=== PATIENT | male | born 1970 | race Caucasian/White ===

== ENCOUNTER 2023-04-11 22:24 | Inpatient (IN) | payer OTHER, SELFPAY ==
[2023-04-11 15:25] VITALS: BP 131/91
[2023-04-11 16:26] LABS: % Basophils 0.6 % (0-2); % Immature Granulocytes 1.1 % (0-0.5); % Lymphocytes 26.1 % (20.5-51.1); % Monocytes 7.8 % (1.7-9.3); % Neutrophils 62.4 % (42.2-75.2); Absolute Basophils 0.1 10^3/uL (0-0.2); Absolute Eosinophils 0.2 10^3/uL (0-0.7); Absolute Immature Granulocytes 0.1 10^3/uL (0-0.05); Absolute Lymphocytes 2.2 10^3/uL (1.2-3.4); Absolute Monocytes 0.7 10^3/uL (0.1-0.6); Absolute Neutrophils 5.3 10^3/uL (1.4-6.5); Hematocrit 44.9 % (39.0-52.0); Hemoglobin 15.1 g/dL (13.0-18.0); Mean Corp Hgb Conc. 33.6 g/dL (33.0-37.0); Mean Corpuscular Hgb 27.7 pg (27.0-31.0); Mean Corpuscular Volume 82.4 fL (80.0-94.0); Mean Platelet Volume 9.8 fL (7.4-10.4); Nucleated Red Blood Cells % 0 % (-); Platelet Count 207 10^3/uL (130-400); Red Blood Cell Count 5.45 10^6/uL (4.70-6.10); Red Cell Dist. Width 12.9 % (11.5-14.5); White Blood Cell Count 8.5 10^3/uL (4.8-10.8)
[2023-04-11 16:40] LABS: ALT (SGPT) 23 U/L (0-50); AST (SGOT) 27 U/L (17-59); Albumin 4.3 g/dl (3.5-5.0); Alkaline Phosphatase 74 U/L (38-126); Blood Urea Nitrogen 14 mg/dl (9-20); Calcium 8.8 mg/dl (8.4-10.2); Carbon Dioxide 26 mmol/L (22-30); Chloride 104 mmol/L (98-107); Glucose 171 mg/dl (70-99); Lipase 360 U/L (23-300); Potassium 4.1 mmol/L (3.5-5.1); Sodium 136 mmol/L (135-145); Total Bilirubin 0.7 mg/dl (0.2-1.3); Total Protein 6.9 g/dl (6.3-8.2); eGFR > 60.00
--- NOTE | 2023-04-11 17:04 | ED.GENMED ---
History of Present Illness
<Carlene Oliva, ENGINE ROOM OPERATOR - Last Filed: 04/11/23 22:36>
General
Chief Complaint: Abdominal Pain
Source: patient
Exam Limitations: none
Time Seen by Provider: 04/11/23 17:00
Nursing documentation reviewed up to this point in time: agreed with
Travel History
Have you had any contact with someone who has COVID-19?: No
Do you have any symptoms of coronavirus? Fever > 100 degrees, chills, cough, shortness of breath, sore throat, loss of taste or smell, muscle aches, or headache?: No
History of Present Illness
History of Present Illness:
52-year-old male with history of CAD, COPD, HLD, HTN, IA, bowel obstruction, colostomy (reversed), diverticulitis, alcohol abuse (has been clean 120 days) anxiety depression, substance abuse ( here from [place] in a rehab program), presents stating
'I think my diverticulitis is flaring up.' Left abdominal pain radiates across to right abdomen started yesterday, gradually worsening. Denies fever/chills, does feel nauseous but no vomiting. Normal BM this morning. No UTI symptoms.
Past History
<Carlene Oliva, ENGINE ROOM OPERATOR - Last Filed: 04/11/23 22:36>
Past History
ED Past Medical History: CAD, COPD, HTN, Hypercholesterolemia, Psychiatric and Other (alcohol and drug abuse)
ED Past Surgical History: Bowel resection (with colostomy which has been reversed) and Cardiac
Social History
Tobacco: Smoker
Alcohol: Former
Drug: Narcotics
Personal:
Living: with family (drug treatment program)
Review of Systems
<Carlene Oliva, ENGINE ROOM OPERATOR - Last Filed: 04/11/23 22:36>
Review of Systems
Allergies reviewed?: Yes
All Other Systems: ROS reviewed and negative except as documented in HPI and ROS
Constitutional: Denies fever
Respiratory: Denies trouble breathing
Cardiac: Denies chest pain
ABD/GI: Reports abdominal pain and nausea; Denies vomiting, diarrhea, constipated, bloody stools or black stools
: Denies dysuria or difficulty voiding
Musculoskeletal: Reports no symptoms
Skin: Reports no symptoms
Neurological: Reports no symptoms
Phy Exam
<Carlene Oliva, ENGINE ROOM OPERATOR - Last Filed: 04/11/23 22:36>
Physical Exam
Physical Exam:
GENERAL: No acute distress. A&Ox3.
CONSTITUTIONAL: Afebrile.
EYES: PERRL, conjunctivae normal
ENMT: moist mucus membranes, Pharynx nl
RESPIRATORY: Regular respirations, nonlabored, lungs clear.
CARDIOVASCULAR: Regular rate and rhythm, no murmurs, no rubs.
GI: Soft, protuberant, multiple old scars, generally moderately tender, normal BS
MUSCULOSKELETAL: Moves with ease. Well perfused.
SKIN: Warm, dry, pink
PSYCH: Normal mood and affect. Well kept, interactive and appropriate
NEUROLOGIC: Awake, alert and oriented. No focal neurological deficits
Course
<Carlene Oliva, ENGINE ROOM OPERATOR - Last Filed: 04/11/23 22:36>
Orders/Labs/Results
Orders:
Orders
04/11/23 16:17
CBC/With Diff [Complete Blood Count/With Diff] Urgent
CMP [Comprehensive Metabolic Panel] Urgent
Lipase Urgent
04/11/23 17:08
CT Abd/pelvis W Iv Cont Urgent
Comment:
Reason For Exam: gen abd pain
04/11/23 17:09
0.9% Sodium Chloride 1000 ml [Nss] 1,000 ml IV BOLUS
Ondansetron Injectable [Zofran] 4 mg IV NOW STA
04/11/23 17:10
Ketorolac [Toradol] 15 mg IV NOW STA
04/11/23 21:13
Lactic Acid Urgent
0.9% Sodium Chloride 1000 ml [Nss] 2,000 ml IV BOLUS
Piperacillin/Tazo 4.5 Gram [Zosyn] 4.5 gram in 100 ml IV NOW
04/11/23 21:14
Ondansetron Injectable [Zofran] 4 mg IV NOW STA
04/11/23 21:23
Lactic Acid Q4H
Comment: CANCEL 2nd LACTIC ACID IF 1st LACTIC ACID IS LESS THAN 2
Blood Culture Q30M
CHANEL Source: Blood/Venous
Specimen Description:
Blood Culture Q30M
CHANEL Source: Blood/Venous
Specimen Description:
04/11/23 21:36
HYDROmorphone [Dilaudid] 1 mg IV NOW STA
Ondansetron Injectable [Zofran] 4 mg IV NOW STA
04/11/23 21:43
Consult Surgery [SURGICAL CONSULT] Urgent
Consulting Provider: Oh Driver
Was physician already notified: Yes
Reason for consult: abdominal pain
04/11/23 22:04
Admit/Transfer Patient As Directed
Co-Sign Provider:
Level of Care: Inpatient admission
Assign to:: Medical/Surgical
Physician / Group: [email or web address]
Diagnosis: evalaution for acute BW perforation vs partail SBO
Reason for Hospitalization: acute BW perforation vs partail SBO
Expected length of stay greater than two midnights?: Yes
ELOS- Estimated Length of Stay in days: 3
I certify the patient meets the requirements for IP care: Yes
04/11/23 22:07
Code Status As Directed
Resuscitation Status: Full Code
04/12/23 01:15
Lactic Acid Q4H
Comment: CANCEL 2nd LACTIC ACID IF 1st LACTIC ACID IS LESS THAN 2
Abnormal Lab Results
04/11/23
16:17
Abs Immat Gran (auto) 0.1 H 10^3/uL
(0-0.05)
Absolute Monos (auto) 0.7 H 10^3/uL
(0.1-0.6)
Immature Gran % 1.1 H %
(0-0.5)
Glucose 171 H mg/dl
(70-99)
Lipase 360 H U/L
(23-300)
04/11/23 16:17
04/11/23 16:17
Vital Signs
Initial and Last Documented VS:
Initial Vital Signs
Temp Pulse Resp BP Pulse Ox
97.9 F 85 20 131/91 100
04/11/23 15:25 04/11/23 15:25 04/11/23 15:25 04/11/23 15:25 04/11/23 15:25
Last Documented Vital Signs
Temp Pulse Resp BP Pulse Ox
97.9 F 67 20 118/78 95
04/11/23 15:25 04/11/23 17:18 04/11/23 15:25 04/11/23 22:00 04/11/23 22:15
Metal Reed Tuner consulted with Physician
Metal Reed Tuner consulted with physician?: Yes
Name of Physician Consulted: Dr. Faye
<Tim Faye, DO - Last Filed: 04/11/23 21:21>
Orders/Labs/Results
Orders:
Orders
04/11/23 16:17
CBC/With Diff [Complete Blood Count/With Diff] Urgent
CMP [Comprehensive Metabolic Panel] Urgent
Lipase Urgent
04/11/23 17:08
CT Abd/pelvis W Iv Cont Urgent
Comment:
Reason For Exam: gen abd pain
04/11/23 17:09
0.9% Sodium Chloride 1000 ml [Nss] 1,000 ml IV BOLUS
Ondansetron Injectable [Zofran] 4 mg IV NOW STA
04/11/23 17:10
Ketorolac [Toradol] 15 mg IV NOW STA
04/11/23 21:13
Lactic Acid Urgent
0.9% Sodium Chloride 1000 ml [Nss] 2,000 ml IV BOLUS
Piperacillin/Tazo 4.5 Gram [Zosyn] 4.5 gram in 100 ml IV NOW
04/11/23 21:14
Ondansetron Injectable [Zofran] 4 mg IV NOW STA
04/11/23 21:23
Lactic Acid Q4H
Comment: CANCEL 2nd LACTIC ACID IF 1st LACTIC ACID IS LESS THAN 2
Blood Culture Q30M
CHANEL Source: Blood/Venous
Specimen Description:
Blood Culture Q30M
CHANEL Source: Blood/Venous
Specimen Description:
04/11/23 21:36
HYDROmorphone [Dilaudid] 1 mg IV NOW STA
Ondansetron Injectable [Zofran] 4 mg IV NOW STA
04/11/23 21:43
Consult Surgery [SURGICAL CONSULT] Urgent
Consulting Provider: Oh Driver
Was physician already notified: Yes
Reason for consult: abdominal pain
04/11/23 22:04
Admit/Transfer Patient As Directed
Co-Sign Provider:
Level of Care: Inpatient admission
Assign to:: Medical/Surgical
Physician / Group: arlene
Diagnosis: evalaution for acute BW perforation vs partail SBO
Reason for Hospitalization: acute BW perforation vs partail SBO
Expected length of stay greater than two midnights?: Yes
ELOS- Estimated Length of Stay in days: 3
I certify the patient meets the requirements for IP care: Yes
04/11/23 22:07
Code Status As Directed
Resuscitation Status: Full Code
04/12/23 01:15
Lactic Acid Q4H
Comment: CANCEL 2nd LACTIC ACID IF 1st LACTIC ACID IS LESS THAN 2
Abnormal Lab Results
04/11/23
16:17
Abs Immat Gran (auto) 0.1 H 10^3/uL
(0-0.05)
Absolute Monos (auto) 0.7 H 10^3/uL
(0.1-0.6)
Immature Gran % 1.1 H %
(0-0.5)
Glucose 171 H mg/dl
(70-99)
Lipase 360 H U/L
(23-300)
04/11/23 16:17
04/11/23 16:17
Vital Signs
Initial and Last Documented VS:
Initial Vital Signs
Temp Pulse Resp BP Pulse Ox
97.9 F 85 20 131/91 100
04/11/23 15:25 04/11/23 15:25 04/11/23 15:25 04/11/23 15:25 04/11/23 15:25
Last Documented Vital Signs
Temp Pulse Resp BP Pulse Ox
97.9 F 67 20 118/78 95
04/11/23 15:25 04/11/23 17:18 04/11/23 15:25 04/11/23 22:00 04/11/23 22:15
<Carlene Oliva, ENGINE ROOM OPERATOR - Last Filed: 04/11/23 22:36>
MDM/Problems Addressed
Differential Diagnosis Includes:
diverticulitis, bowel obstruction
MDM/Problems Addressed:
52-year-old male with history of CAD, COPD, HLD, HTN, IA, bowel obstruction, colostomy (reversed), diverticulitis, alcohol abuse (has been clean 120 days) anxiety depression, substance abuse ( here from [place] in a rehab program), presents stating
'I think my diverticulitis is flaring up.' Left abdominal pain radiates across to right abdomen started yesterday, gradually worsening. Denies fever/chills, does feel nauseous but no vomiting. Normal BM this morning. No UTI symptoms.
04/11/2023 2110 PM
CBC normal
CMP with no clinically significant abnormality
Lipase minimally elevated at 360 CT abdomen pelvis
with IV only contrast radiology report read: IMPRESSION: Evidence of previous bowel surgeries.
There is a focal area of dilated small bowel loops in the anterior midline lower abdomen and upper pelvis, in the region of previous anastomosis. There are small foci of extraluminal air along the anterior and inferior margin of this dilated loop of
small bowel, also extending right laterally adjacent to a separate loop of nondilated small bowel. These small extraluminal air-filled cysts are new since previous examination of February 20, 2023. Findings would suggest pneumatosis of this loop of
small bowel. See above discussion.
No evidence for free intraperitoneal air.
Findings of previous granulomatous disease within the visualized lower chest.
Bony degenerative changes as described.
Case discussed with Dr. Faye who evaluated patient
Consulted general surgeon Dr. Driver as he has seen patient in the past
Chronic conditions affecting care: DM, HTN, CAD, COPD, Previous abdomnial surgery and Psychiatric illness (alcohol/drugabuse currently in recovery program)
<Tim Faye DO - Last Filed: 04/11/23 21:21>
*Pulse Oximetry
Patient hypoxic: no
*Program Scheduler Interpretation
Rate: normal
Interpretation: normal
Heart Rate: 78
Rhythm: sinus
*Critical Care Note
Total Time (30-74mins, 75-104mins- exclusive of procedures): 32
Data Reviewed
Review of Other/Old Records Reveals: Labs, Radiology Studies and Progress Notes
Source: patient and records
ED Attending Note
<Carlene Oliva ENGINE ROOM OPERATOR - Last Filed: 04/11/23 22:36>
-
Portions of this chart may have been created with voice recognition software.� Occasional wrong word or��sound alike� substitutions may have occurred due to the inherent limitations of voice recognition software.
<Tim Faye DO - Last Filed: 04/11/23 21:21>
ED Attending Note
Patient seen and examined by attending physician: Yes
I performed the substantive portion of visit, reviewed & personally made and approve the management plan that is documented in note by myself or TAMIKO.: Yes
ED Attending Note:
Seen with ENGINE ROOM OPERATOR examined independently recurrent lower abdominal pain living locally drug and alcohol rehab 15prior abdominal surgeries colostomy small bowel obstructions, mesh, admitted if earlier this year with abdominal complaints treated
nonsurgically--diffusely tender right greater than left white count noted,
Will start antibiotics, will require admission surgical consultation
Discharge Plan
Departure
Patient Disposition: Admit
Date of Disposition: 04/11/23
Time of Disposition: 21:32
Presentation/result/management discussed w/ accepting MD/DO: Hospitalist
Condition: Serious
Discharge Problem:
Abdominal pain, acute
Interventions
Interventions:
*Risk Screen - Suicide Last Done: 04/11/23 15:25
*General Assessment Last Done: 04/11/23 15:25
*Neglect/Abuse Screening Last Done: 04/11/23 15:25
*ED COVID-19 Vaccine History Last Done: 04/11/23 15:25
[id number] Assessment Last Done: 04/11/23 16:19
[2023-04-11] MEDS: NSS 1000 IV ×2 (17:14→23:48)
[2023-04-11] MEDS: TORADOL 15 MG IV (17:14)
[2023-04-11] MEDS: ZOFRAN 4 MG IV ×2 (17:14→21:31)
[2023-04-11 17:18] VITALS: BP 128/89
[2023-04-11] MEDS: ZOSYN 100 IV (21:31)
[2023-04-11] MEDS: NSS 2000 IV (21:31)
[2023-04-11] MEDS: DILAUDID 1 MG IV ×2 (21:53→23:47)
[2023-04-11 21:55] VITALS: BP 127/83
--- NOTE | 2023-04-11 21:56 | HPS.HSE ---
Family Physician
-
Family Physician: JAZZ Alvarez
Chief Complaint
-
abdominal pain
History of Present Illness
52M from [facility] re[facility] HX multiple multiple abdominal surgeries and SBOs , reversed colostomy pw acute and gradually worsening abdominal pain especially Lt lower abdomen, radiates across to Rt side
POS Nausea. Denied emesis.
POS normal BM this morning
Denies fever/chill
Medical History
Past Medical History
Past Medical History: Reports CAD, COPD, HTN, Hypercholesterolemia, Psychiatric (anxiety HX opiate/alcohol abuse in active rehab since 12/31/22) and Other (BPH , )
Past Surgical History: Reports Bowel Resection
Social History
Tobacco: Smoker
Alcohol: Former
Drug: Narcotics
Family History
Family History: Not pertinent
Allergies / Home Medications
Allergies reflects when Allergies were last updated in [email or web address].
Home Medications with original date entered in [email or web address]
Allergy/Medication List:
Allergies
Allergy/AdvReac Type Severity Reaction Status Date / Time
sulfamethoxazole Allergy Hives Verified 04/11/23 15:29
[From Bactrim]
trimethoprim [From Bactrim] Allergy Hives Verified 04/11/23 15:29
Home Medications
albuterol sulfate 90 mcg/actuation aerosol inhaler (ProAir HFA) 2 puff inhalation R Q4HPRN PRN sob 02/20/23
aspirin 81 mg tablet,delayed release 81 mg PO DAILY Blood Clot Prevention/Tx 02/20/23
atorvastatin 40 mg tablet (Lipitor) 40 mg PO HS High Cholesterol 02/20/23
budesonide-formoterol HFA 80 mcg-4.5 mcg/actuation aerosol inhaler (Symbicort) 1 inh inhalation R BID Lung/Breathing Issues 02/20/23
clonidine HCl 0.1 mg tablet 0.1 mg PO BIDPRN PRN ANIXETY 02/20/23
hydroxyzine HCl 50 mg tablet 50 mg PO DAILY 02/20/23
lisinopril 10 mg tablet 10 mg PO DAILY Blood Pressure 02/20/23
methocarbamol 500 mg tablet 500 mg PO TIDPRN PRN spasms 02/20/23
metoprolol succinate 25 mg tablet,extended release 24 hr 25 mg PO DAILY Heart Disease/Condition 02/20/23
naltrexone 50 mg tablet 50 mg PO HS 02/20/23
nitroglycerin 0.4 mg sublingual tablet (Nitrostat) 0.4 mg sublingual [id number] PRN chest pains 02/20/23
polyethylene glycol 3350 17 gram oral powder packet (Miralax) 17 g PO HSPRN PRN CONSTIPATION 02/20/23
prazosin 2 mg capsule 8 mg PO HS 02/20/23
sertraline 100 mg tablet 100 mg PO DAILY 02/20/23
sodium phosphates 19 gram-7 gram/118 mL enema (Fleet Enema) 118 ml CO HSPRN PRN CONSTIPATION 02/20/23
tamsulosin 0.4 mg capsule (Flomax) 0.4 mg PO BID Urinary Issue 02/20/23
docusate sodium 100 mg capsule 100 mg PO BID 04/11/23
hydroxyzine HCl 50 mg tablet 100 mg PO HS 04/11/23
magnesium glycinate 665 mg PO HS 04/11/23
quetiapine 50 mg tablet (Seroquel) 50 mg PO HS 04/11/23
Review of Systems
-
Constitutional: Reports No Symptoms
EENT: Reports No Symptoms
Respiratory: Reports No Symptoms
Cardiac: Reports No Symptoms
Abdomen/GI: Reports Abdominal Pain, Nausea and Other (last BM this AM ); Denies Vomiting
: Reports No Symptoms
Musculoskeletal: Reports No Symptoms
Skin: Reports No Symptoms
Neurological: Reports No Symptoms
Endocrine: Reports No Symptoms
Hematologic/Lymphatic: Reports No Symptoms
Psych: Reports No Symptoms
Physical Exam
Vital Signs
Vital Signs
Temp Pulse Resp BP Pulse Ox
97.9 F 67 20 128/89 93
04/11/23 15:25 04/11/23 17:18 04/11/23 15:25 04/11/23 17:18 04/11/23 17:18
Physical Exam
General: Conversant
HEENT: Anicteric and Moist mucous membranes
Respiratory: Clear; No Wheezes or Rales
Cardiac: S1/S2 and Regular Rhythm; No Murmur
Breast: Deferred by me
GI: Soft (firm), Tender (diffuse ) and Other (multple well healed old scars ); No Normal Bowel Sounds
Rectal: Deferred by Provider
Genito-urinary: Deferred by me
Musculoskeletal: No Edema
Skin: Warm
Neuro: AO x 3 and No Motor Deficits
Psych: Calm
Laboratory Results
-
04/11/23 16:17
04/11/23 16:17
Laboratory Results
Lactic Acid 1.0 mmol/L (0.7-2.0) 04/11/23 21:23
Total Bilirubin 0.7 mg/dl (0.2-1.3) 04/11/23 16:17
AST 27 U/L (17-59) 04/11/23 16:17
ALT 23 U/L (0-50) 04/11/23 16:17
Alkaline Phosphatase 74 U/L (38-126) 04/11/23 16:17
Lipase 360 U/L (23-300) H 04/11/23 16:17
Data Reviewed
-
CT Scan: Report Reviewed by me
Lab Data: Labs Reviewed by me
Old Records: Reviewed
Impression/Plan
-
Reviewed VS: reviewed. Unremarkable
Vital Signs
Temp Pulse Resp BP Pulse Ox
97.9 F 67 20 128/89 93
04/11/23 15:25 04/11/23 17:18 04/11/23 15:25 04/11/23 17:18 04/11/23 17:18
Data
nl CBC
nl CMP
Lipase 360
BCx x2
CT Abd/pelvis W Iv Cont
- There is a focal area of dilated small bowel loops in the anterior midline lower abdomen and upper pelvis, in the region of previous anastomosis. There are small foci of extraluminal air along the anterior and inferior margin of this dilated loop
of small bowel, also extending right laterally adjacent to a separate loop of nondilated small bowel. These small extraluminal air-filled cysts are new since previous examination of February 20, 2023. Findings would suggest pneumatosis of this loop of
small bowel. See above discussion.
- No evidence for free intraperitoneal air.
- Findings of previous granulomatous disease within the visualized lower chest.
- Bony degenerative changes as described.
Last hospitalist admission: - 02/22/23
DX: partial SBO
ASSESSMENT & PLAN
Evaluation for acute BW perforation vs less liklley partal SBO due to findings below:
Gradual worsening lower abdominal pain
Small foci of extraluminal air along the anterior and inferior margin of this dilated loop of small bowel
New small extraluminal air-filled cysts
Focal dilated loops of SB
Afebrile and Nl WCC
- NPO and IVF
- Analgesia PRN
- Started on empiric due to clinically tense and tender abdomen with +/_mild peritonism
- f/u T and WCC
- GS consulted
He received IV Dilaudid and IV Toradol at ER
HX opiate/alcohol abuse in active rehab since 12/31/22
- IV Toradol PRN
- cont Clonidine
HX CAD - sable
HLD
- Held ASA
- Held Statin/BB
Essential HTN
- held RONNIE/Prazosin/BB
Anxiety/Depression
- on Zoloft
HX COPD - stable
former tobacco abuser
- cont Symbicort
- prn Nebs
BPH
- Held Flomax/Prazosin
DVT ppx: SCDs
Code: Full
Obs MS
[2023-04-11 22:00] VITALS: BP 118/78
[2023-04-11 22:46] VITALS: BMI 38.5
[2023-04-11 22:47] VITALS: BP 135/89
[2023-04-11] MEDS: TORADOL 10 MG IV (23:13)
[2023-04-11 23:38] VITALS: BP 120/79
[2023-04-12] VITALS (7 sets, daily range): BP systolic 102–137; BP diastolic 61–80
[2023-04-12] MEDS: CATAPRES 0.100000000000000006 MG PO
--- NOTE | 2023-04-12 00:36 | PTCARENOTE ---
Pt. received from ED to [address] [place] [address] around 2310. Upon initial assessment pt. is visibly uncomfortable, anxious, shaking, occasionally groaning in pain, states pain is 10/10 mainly in his LLQ of the abd and radiating to his RLQ. Bowel sounds are
hyperactive and high pitched throughout, belly is grossly distended and firm on palpation. Pt. states the pain is worse than when he was in the ED, describing it as a 'burning' or 'ripping' and states pain medication didn't help when previously
administered. Surgical on-call provider made aware and no emergent surgical intervention needed unless pt. has hemodynamic changes. Vital signs otherwise stable and pain medication given, see MAR. Pt. oriented to room and unit policies, bed locked
and in lowest position, side rails in place, call light within reach, and questions/concerns addressed at time of assessment. Will closely monitor.
[2023-04-12] MEDS: DILAUDID 1 MG IV ×4 (01:47→21:27)
[2023-04-12] MEDS: ZOSYN 50 IV (03:58)
--- NOTE | 2023-04-12 05:09 | DOWNTIME ---
There was a [facility] Client Ob Scrub Tech Downtime on 04/12/2023 from 0111 to 04/12/2023 at 0405. Downtime documentation of patient's care, including medication administrations, has been reconciled in the electronic record per guidelines. Refer to the
patient's paper chart under the miscellaneous tab to see printed paper medication records and downtime forms.
[2023-04-12 05:54] LABS: Hematocrit 38.9 % (39.0-52.0); Hemoglobin 12.9 g/dL (13.0-18.0); Mean Corp Hgb Conc. 33.2 g/dL (33.0-37.0); Mean Corpuscular Hgb 27.9 pg (27.0-31.0); Mean Corpuscular Volume 84.2 fL (80.0-94.0); Mean Platelet Volume 10.1 fL (7.4-10.4); Platelet Count 172 10^3/uL (130-400); Red Blood Cell Count 4.62 10^6/uL (4.70-6.10); Red Cell Dist. Width 12.9 % (11.5-14.5); White Blood Cell Count 7.8 10^3/uL (4.8-10.8)
[2023-04-12 06:23] LABS: Blood Urea Nitrogen 14 mg/dl (9-20); Calcium 7.6 mg/dl (8.4-10.2); Carbon Dioxide 24 mmol/L (22-30); Chloride 110 mmol/L (98-107); Estimated Creatinine Clearance 101 ml/min; Glucose 96 mg/dl (70-99); Lipase 363 U/L (23-300); Potassium 4.1 mmol/L (3.5-5.1); Sodium 137 mmol/L (135-145); eGFR > 60.00
--- NOTE | 2023-04-12 07:55 | CON.GS ---
Addendum entered and electronically signed by Oh Driver MD 04/12/23 08:07:
Addendum: holding NSAIDs given ? of perforation
Original Note:
Consultation
-
Requesting Provider: Day
Performing Provider: Neisha
Reason for Consultation: Abd pain
Medical History
-
Chief Complaint: Abd pain
History of Present Illness:
52M presents to ED from inpt drug rehab for recurrent acute onset abd pain. Began with bloating 2 days ago, then anorexia, pain began around that time and was progressive. Localized to LLQ and radiating to RLQ, this am the pain is more diffuse. Last
BM yesterday reportedly normal. He is passing flatus throughout this episode, and denies n/v. Denies f/c. Denies eating anything unusual over the past week. Recently admitted here with similar presentation about 7 weeks ago and was NE'ed after 2
days without intervention with dx pSBO.
Past Medical History
Past Medical History: Asthma and Other (CAD, COPD, HTN, Hypercholesterolemia, Psychiatric and Other (alcohol and drug abuse))
Past Surgical History: Cardiac and Other (bowel perforation s/p exploratory laparotomy with bowel resection and ostomy with subsequent reversal c/b multiple SBO's necessitating operative exploration c/b incisional hernia s/p open ventral incisional
hernia repair with mesh (all prior surgical procedures in [place]) and Cardiac)
Social History
Tobacco: Smoker
Alcohol: Former
Drug: Former User
Personal:
Living: Other (inpatient drug tx)
Family History
Family History: Reviewed & Noncontributory
Allergies / Home Medications
Allergy/AdvReac Type Severity Reaction Status Date / Time
sulfamethoxazole Allergy Hives Verified 04/11/23 15:29
[From Bactrim]
trimethoprim [From Bactrim] Allergy Hives Verified 04/11/23 15:29
Medication Instructions Recorded Confirmed Type
albuterol sulfate 90 mcg/actuation 2 puff inhalation R Q4HPRN PRN sob 02/20/23 04/11/23 History
aerosol inhaler (ProAir HFA)
aspirin 81 mg tablet,delayed 81 mg PO DAILY Blood Clot 02/20/23 04/11/23 History
release Prevention/Tx
atorvastatin 40 mg tablet (Lipitor) 40 mg PO HS High Cholesterol 02/20/23 04/11/23 History
budesonide-formoterol HFA 80 1 inh inhalation R BID 02/20/23 04/11/23 History
mcg-4.5 mcg/actuation aerosol Lung/Breathing Issues
inhaler (Symbicort)
clonidine HCl 0.1 mg tablet 0.1 mg PO BIDPRN PRN ANIXETY 02/20/23 04/11/23 History
hydroxyzine HCl 50 mg tablet 50 mg PO DAILY 02/20/23 04/11/23 History
lisinopril 10 mg tablet 10 mg PO DAILY Blood Pressure 02/20/23 04/11/23 History
methocarbamol 500 mg tablet 500 mg PO TIDPRN PRN spasms 02/20/23 04/11/23 History
metoprolol succinate 25 mg 25 mg PO DAILY Heart 02/20/23 04/11/23 History
tablet,extended release 24 hr Disease/Condition
naltrexone 50 mg tablet 50 mg PO HS 02/20/23 04/11/23 History
nitroglycerin 0.4 mg sublingual 0.4 mg sublingual [id number] PRN 02/20/23 04/11/23 History
tablet (Nitrostat) chest pains
polyethylene glycol 3350 17 gram 17 g PO HSPRN PRN CONSTIPATION 02/20/23 04/11/23 History
oral powder packet (Miralax)
prazosin 2 mg capsule 8 mg PO HS 02/20/23 04/11/23 History
sertraline 100 mg tablet 100 mg PO DAILY 02/20/23 04/11/23 History
sodium phosphates 19 gram-7 118 ml FL HSPRN PRN CONSTIPATION 02/20/23 04/11/23 History
gram/118 mL enema (Fleet Enema)
tamsulosin 0.4 mg capsule (Flomax) 0.4 mg PO BID Urinary Issue 02/20/23 04/11/23 History
docusate sodium 100 mg capsule 100 mg PO BID 04/11/23 04/11/23 History
hydroxyzine HCl 50 mg tablet 100 mg PO HS 04/11/23 04/11/23 History
magnesium glycinate 665 mg PO HS 04/11/23 04/11/23 History
quetiapine 50 mg tablet (Seroquel) 50 mg PO HS 04/11/23 04/11/23 History
Review of Systems
-
A 10 point review of systems was completed, and was negative except as per HPI.
Physical Exam
Vital Signs
Temp Pulse Resp BP Pulse Ox
98.1 F 65 18 102/65 99
04/12/23 07:44 04/12/23 07:44 04/12/23 07:44 04/12/23 07:44 04/12/23 07:44
04/11/23 04/12/23 04/13/23
06:59 06:59 06:59
Actual Weight 98.486 kg
Body Mass Index (BMI) 38.5
Lab Results
04/12/23 04:48
04/12/23 04:48
WBC 7.8 10^3/uL (4.8-10.8) 04/12/23 04:48
Hgb 12.9 g/dL (13.0-18.0) L 04/12/23 04:48
Hct 38.9 % (39.0-52.0) L 04/12/23 04:48
Plt Count 172 10^3/uL (130-400) 04/12/23 04:48
Abs Immat Gran (auto) 0.1 10^3/uL (0-0.05) H 04/11/23 16:17
Neutrophils % 62.4 % (42.2-75.2) 04/11/23 16:17
Physical Exam
General: No Apparent Distress
GI: Soft, Non Distended and Tender (moderate ttp diffusely, but not at suprapubic area, voluntary guarding)
Skin: Warm and Dry
Neuro: AO x 3
Psych: Calm
Data Reviewed
-
CT Scan: Image Personally Visualized and interpreted, Report Reviewed by me, Discussed with Physician, Discussed with Nurse and Discussed with Patient
Labs: Labs Reviewed by me and Discussed with Patient
Old Records: Reviewed
Assessment / Plan
-
52M with abdominal pain of unknown etiology
AFVSS, pain improved this am but not resolved, passing flatus, denies n/v
No leukocytosis, no neutrophilia
CT A/P with an area of dilated sb at the site of a prior anastomosis that appears widely patent, there is a question of extraluminal air vs pneumatosis of this segment of sb, also a nearby area of dilated colon at the site of a prior anastomosis
that appears patent but decompresses rapidly distal to that point; no free fluid, no free air, no PV gas
Given the lack of any clinical declaration, with WBC remaining WNL and vitals remaining unremarkable through the night, it is highly unlikely there is a genuine bowel perforation. I suspect this is a combination of pSBO or possibly pLBO combined
with his narcotic abuse/chronic pain hx. Will confirm lack of free air with upright CXR. If free air is identified may need to consider invasive mgmt, though given his operative hx this would be high risk.
Plan:
Upright CXR this am
Stop Abx and monitor
Enema to clear the rectal vault, consider contrast enema after this to evaluate area of sigmoid colon anastomosis
Consider GI consult / scope
DVT ppx
W/D precautions
Will follow
[2023-04-12] MEDS: ZOLOFT 100 MG PO (08:42)
[2023-04-12] MEDS: ZESTRIL 10 MG PO (08:42)
--- NOTE | 2023-04-12 09:17 | W.PN.UPDATE ---
Update Note
Progress Note Update
Upright CXR reviewed, no free air noted. Proceed with enema
[2023-04-12] MEDS: FLEET MINERAL OIL ENEMA 133 ML RECTAL (09:35)
--- NOTE | 2023-04-12 10:32 | W.PN.HOSP.TC ---
Today's Communication/Plan
-
Barium enema
Assessment / Plan
Assessment / Plan
Gen-AAOx3, NAD, obese
HEENT-NC, AT, anicteric, clear oral mm
Neck-supple
CV-reg, no M, +S1/S2
Lungs-clear B/L
Abd-distended, mildly tender, no guarding
Ext-no edema
Musculoskeletal-no cyanosis, clubbing
Skin-warm and dry
Neuro-grossly non-focal
Psych-calm, cooperative
Partial small bowel obstruction -no free air on abdominal x-ray. Appreciate general surgery input. Continue n.p.o. for now. Awaiting barium enema.
Patient states he has had multiple episodes of bowel obstruction in the past, has had 15 abdominal surgeries.
Mild lipase elevation noted. Pancreas appears normal on CT scan. Doubt clinical pancreatitis.
Opioid use disorder -currently in inpatient rehab. Treated with naltrexone in rehab.
Hyperlipidemia
CAD -stable.
COPD without exacerbation -stable.
Anxiety/depression
BPH
Obesity due to excess calories
Full code
Anticipated Discharge: > 48 hours
Subjective/Interval History
-
Date of Service: April 12, 2023
Patient seen and examined. Had the enema this morning, abdominal pain somewhat worse after enema. Had a loose stool.
Objective Data
-
Labs:
Laboratory Results
04/12/23
04:48
WBC 7.8
Hgb 12.9 L
Hct 38.9 L
Plt Count 172
Sodium 137
Potassium 4.1
Chloride 110 H
Carbon Dioxide 24
BUN 14
Creatinine 0.9
Glucose 96
Calcium 7.6 L
Vital Signs:
Vital Signs
Temp Pulse Resp BP Pulse Ox
98.1 F 65 18 102/65 99
04/12/23 07:44 04/12/23 07:44 04/12/23 07:44 04/12/23 07:44 04/12/23 07:44
I&O
04/11/23 04/12/23 04/13/23
06:59 06:59 06:59
Intake Total 610 / 610
Balance 610 / 610
Review of Systems
-
History Source: Patient
All other systems: Reviewed and negative
[2023-04-12] MEDS: NSS 1000 IV (13:13)
[2023-04-12] MEDS: ZOFRAN 4 MG IV (13:44)
--- NOTE | 2023-04-12 14:31 | CM ---
Reviewed the chart notes and spoke with the patient at the bedside. The patient resides with roommates in a sober house. The patient's room is on the first floor. The patient reports no DME/SNF in past, but has had VN, could not recall the name
of the agency. The patient anticipates being discharged back to home with no additional needs being identified at this time. CM continues to be available to patient/family and is monitoring medical plan for needs at discharge.
Plan: Discharge to home when medically stable.
[2023-04-12] MEDS: SEROQUEL 50 MG PO ×2 (21:22)
[2023-04-13] MEDS: NSS IV (00:55)
[2023-04-13] MEDS: NSS 1000 IV (01:48)
[2023-04-13 07:40] VITALS: BP 130/73
[2023-04-13] MEDS: ZESTRIL 10 MG PO (08:32)
[2023-04-13] MEDS: ZOLOFT 100 MG PO (08:32)
[2023-04-13] MEDS: DILAUDID 1 MG IV (08:34)
--- NOTE | 2023-04-13 11:13 | W.PN.GS2 ---
Today's Communication / Plan
-
`
Assessment / Plan
-
Assessment: 52 y/o male with probable recurrent partial SBO in setting of innumerable prior abdominal surgeries (SBR/colon resection/ostomy and reversal, hernia repairs with mesh)
BE on 04/12 - no evidence of anastomotic stricture, otherwise normal study
AFVSS
abdominal xray improving bowel gas pattern
Plan: clinically and radiographically improving
clear liquid diet today
given prior surgical hx pt likely with extensive adhesions. CT imaging without bowel compromise or threat. symptoms started after eating out this time.
dietary counseling provided to patient - recommended that he generally may need to consume smaller portions and softer/easier to digest foods for the foreseeable future to hopefully minimize group home recurrent pSBO symptoms/occurrences.
supplement nutritional intake with protein/calorie shakes. surgery would only be considered for compromised bowel or immediate bowl threat.
Subjective Data
-
Date of Service: April 13, 2023
pt seen and examined
continued LLQ pain, improved a bit
nausea report but also hungry
+fl and multiple BMs since enema study
Objective Data
-
Intake and Output
04/12/23 04/13/23 04/14/23
06:59 06:59 06:59
Intake Total 610 / 610 2099
Balance 610 / 610 2099
Intake:
Oral fluids 180 / 180
IV fluids (Total) 560 / 560 1919 / 1919
IV piggybacks 50 / 50
Other:
Number of approximated MODERATE 1 2
amounts of urine
Number of approximated LARGE 1
amounts of urine
Vital Signs
Temp Pulse Resp BP Pulse Ox
97.5 F 61 16 130/73 96
04/13/23 07:40 04/13/23 07:40 04/13/23 07:40 04/13/23 07:40 04/13/23 07:40
Lab Results
04/12/23 04:48
04/12/23 04:48
Calcium 7.6 mg/dl (8.4-10.2) L 04/12/23 04:48
Total Bilirubin 0.7 mg/dl (0.2-1.3) 04/11/23 16:17
AST 27 U/L (17-59) 04/11/23 16:17
ALT 23 U/L (0-50) 04/11/23 16:17
Alkaline Phosphatase 74 U/L (38-126) 04/11/23 16:17
Total Protein 6.9 g/dl (6.3-8.2) 04/11/23 16:17
Albumin 4.3 g/dl (3.5-5.0) 04/11/23 16:17
Physical Exam
-
NAD AAOx3, resting comfortably in bed with sunglasses on
ABD: soft, ND, TTP llq and central; multiple large surgical scars
--- NOTE | 2023-04-13 12:33 | W.PN.HOSP.TC ---
Today's Communication/Plan
-
Stop opiates
IV Toradol as needed
Diet per surgery
Assessment / Plan
Assessment / Plan
Gen-AAOx3, NAD, obese
HEENT-NC, AT, anicteric, clear oral mm
Neck-supple
CV-reg, no M, +S1/S2
Lungs-clear B/L
Abd-distended, mildly tender, no guarding
Ext-no edema
Musculoskeletal-no cyanosis, clubbing
Skin-warm and dry
Neuro-grossly non-focal
Psych-calm, cooperative
Partial small bowel obstruction -no free air on abdominal x-ray. Appreciate general surgery input. Obstruction appears to have resolved. Barium enema shows no obstructing stricture. Abdominal film today shows nonobstructive bowel gas pattern.
Clear liquid diet ordered by surgery.
Patient states he has had multiple episodes of bowel obstruction in the past, has had 15 abdominal surgeries.
Mild lipase elevation noted. Pancreas appears normal on CT scan. Doubt clinical pancreatitis.
Opioid use disorder -currently in inpatient rehab. Treated with naltrexone in rehab.
Hyperlipidemia
CAD -stable.
COPD without exacerbation -stable.
Anxiety/depression
BPH
Obesity due to excess calories
Full code
Dispo -can discharge back to inpatient drug and alcohol rehab when medically stable.
Anticipated Discharge: Within 24 hours
Subjective/Interval History
-
Date of Service: April 13, 2023
Patient seen and examined. Still complaining of abdominal discomfort.
Objective Data
-
Vital Signs:
Vital Signs
Temp Pulse Resp BP Pulse Ox
97.5 F 61 16 130/73 92
04/13/23 07:40 04/13/23 07:40 04/13/23 07:40 04/13/23 07:40 04/13/23 08:30
I&O
0204/13/23 04/14/23
06:59 06:59 06:59
Intake Total 610 / 610 2099
Balance 610 / 610 2099
Review of Systems
-
History Source: Patient
All other systems: Reviewed and negative
[2023-04-13 15:20] VITALS: BP 143/88
[2023-04-13] MEDS: TORADOL 30 MG IV (21:32)
[2023-04-13] MEDS: SEROQUEL 50 MG PO (21:32)
[2023-04-13] MEDS: ZOFRAN 4 MG IV (21:42)
[2023-04-13 23:10] VITALS: BP 121/76
[2023-04-14 07:43] VITALS: BP 143/83
[2023-04-14] MEDS: ZOLOFT 100 MG PO (08:54)
[2023-04-14] MEDS: ZESTRIL 10 MG PO (08:55)
[2023-04-14] MEDS: TORADOL 30 MG IV ×3 (08:57→21:45)
--- NOTE | 2023-04-14 09:02 | W.PN.GS2 ---
Today's Communication / Plan
-
-- Fulls
-- Miralax
Assessment / Plan
-
Assessment: 52 y/o male with probable recurrent partial SBO in setting of innumerable prior abdominal surgeries (SBR/colon resection/ostomy and reversal, hernia repairs with mesh)
BE on 04/12 - no evidence of anastomotic stricture, otherwise normal study
AFVSS
abdominal xray improving bowel gas pattern
Plan: trial of fulls today
miralax QD
given prior surgical hx pt likely with extensive adhesions. CT imaging without bowel compromise or threat. symptoms started after eating out this time.
dietary counseling provided to patient - recommended that he generally may need to consume smaller portions and softer/easier to digest foods for the foreseeable future to hopefully minimize joint terminal attack controller recurrent pSBO symptoms/occurrences.
supplement nutritional intake with protein/calorie shakes. surgery would only be considered for compromised bowel or immediate bowl threat.
Subjective Data
-
Date of Service: April 14, 2023
Abdominal pain improved since admission. Reports passing flatus, last BM yesterday morning. Mild nausea overnight, but no vomiting. Ambulating. Afebrile.
Objective Data
-
Intake and Output
04/13/23 04/14/23 04/15/23
06:59 06:59 06:59
Intake Total 2099
Balance 2099
Intake:
Oral fluids 180 / 180 1979
IV fluids (Total) 1919
Other:
Number of approximated MODERATE 2 3
amounts of urine
Number of approximated LARGE 1 7
amounts of urine
Vital Signs
Temp Pulse Resp BP Pulse Ox
97.8 F 65 16 143/83 95
04/14/23 07:43 04/14/23 07:43 04/14/23 07:43 04/14/23 07:43 04/14/23 07:43
Lab Results
04/12/23 04:48
04/12/23 04:48
Calcium 7.6 mg/dl (8.4-10.2) L 04/12/23 04:48
Total Bilirubin 0.7 mg/dl (0.2-1.3) 04/11/23 16:17
AST 27 U/L (17-59) 04/11/23 16:17
ALT 23 U/L (0-50) 04/11/23 16:17
Alkaline Phosphatase 74 U/L (38-126) 04/11/23 16:17
Total Protein 6.9 g/dl (6.3-8.2) 04/11/23 16:17
Albumin 4.3 g/dl (3.5-5.0) 04/11/23 16:17
Physical Exam
-
Gen: NAD
Abd: soft, mild/moderate tenderness, ND, non-peritoneal, prior incisions well healed
--- NOTE | 2023-04-14 09:15 | CM ---
Reviewed the chart notes. Received call from DALILA An ([phone], ext. [phone]) to offer assistance with any discharge needs. CM continues to be available to patient/family and is monitoring medical plan for needs at discharge.
Plan: [facility] back to [facility] when medically stable.
[2023-04-14] MEDS: MIRALAX 17 GRAMS PO (10:36)
--- NOTE | 2023-04-14 11:08 | W.PN.HOSP.TC ---
Today's Communication/Plan
-
Advance diet as tolerated
Assessment / Plan
Assessment / Plan
Gen-AAOx3, NAD, obese
HEENT-NC, AT, anicteric, clear oral mm
Neck-supple
CV-reg, no M, +S1/S2
Lungs-clear B/L
Abd-distended, mildly tender, no guarding
Ext-no edema
Musculoskeletal-no cyanosis, clubbing
Skin-warm and dry
Neuro-grossly non-focal
Psych-calm, cooperative
Partial small bowel obstruction -no free air on abdominal x-ray. Bowels are now moving. Clinically improving. Obstruction appears to have resolved. Barium enema shows no obstructing stricture. Abdominal film shows nonobstructive bowel gas
pattern. Diet advanced to full liquids today.
Patient states he has had multiple episodes of bowel obstruction in the past, has had 15 abdominal surgeries.
Mild lipase elevation noted. Pancreas appears normal on CT scan. Doubt clinical pancreatitis.
Opioid use disorder -currently in inpatient rehab. Treated with naltrexone in rehab.
Hyperlipidemia
CAD -stable.
COPD without exacerbation -stable.
Anxiety/depression
BPH
Obesity due to excess calories
Full code
Dispo -can discharge back to inpatient drug and alcohol rehab when medically stable.
Anticipated Discharge: Within 24 hours
Subjective/Interval History
-
Date of Service: April 14, 2023
Patient seen and examined. Still with abdominal pain but overall improving. He is sitting up on the edge of the bed.
Objective Data
-
Vital Signs:
Vital Signs
Temp Pulse Resp BP Pulse Ox
97.8 F 65 16 143/83 95
04/14/23 07:43 04/14/23 07:43 04/14/23 07:43 04/14/23 07:43 04/14/23 07:43
I&O
04/13/23 04/14/23 04/15/23
06:59 06:59 06:59
Intake Total 2099
Balance 2099
Review of Systems
-
History Source: Patient
All other systems: Reviewed and negative
[2023-04-14 15:55] VITALS: BP 144/89
[2023-04-14] MEDS: SEROQUEL 50 MG PO (21:45)
[2023-04-14 23:19] VITALS: BP 142/83
[2023-04-15 07:21] VITALS: BP 165/95
[2023-04-15] MEDS: ZOLOFT 100 MG PO (08:45)
[2023-04-15] MEDS: ZESTRIL 10 MG PO (08:45)
[2023-04-15] MEDS: MIRALAX 17 GRAMS PO (08:46)
[2023-04-15] MEDS: TORADOL 30 MG IV ×2 (08:51→21:39)
--- NOTE | 2023-04-15 10:44 | W.PN.HOSP.TC ---
Today's Communication/Plan
-
Clear liquid diet
Check labs
Antiemetics
Assessment / Plan
Assessment / Plan
Gen-AAOx3, NAD, obese
HEENT-NC, AT, anicteric, clear oral mm
Neck-supple
CV-reg, no M, +S1/S2
Lungs-clear B/L
Abd-distended, mildly tender, no guarding
Ext-no edema
Musculoskeletal-no cyanosis, clubbing
Skin-warm and dry
Neuro-grossly non-focal
Psych-calm, cooperative
Partial small bowel obstruction -no free air on abdominal x-ray. Obstruction appears to have resolved. Barium enema shows no obstructing stricture. Abdominal film shows nonobstructive bowel gas pattern.
Patient states he has had multiple episodes of bowel obstruction in the past, has had 15 abdominal surgeries.
Mild lipase elevation noted. Pancreas appears normal on CT scan. Doubt clinical pancreatitis.
Having increased pain today with nausea. Diet downgraded to clears. Will check labs.
Last BM 2 days ago.
Opioid use disorder -currently in inpatient rehab. Treated with naltrexone in rehab.
Hyperlipidemia
CAD -stable.
COPD without exacerbation -stable.
Anxiety/depression
BPH
Obesity due to excess calories
Full code
Dispo -can discharge back to inpatient drug and alcohol rehab when medically stable.
Anticipated Discharge: > 48 hours
Subjective/Interval History
-
Date of Service: April 15, 2023
Patient seen and examined. Having increased abdominal pain today. Some nausea. No vomiting.
Objective Data
-
Vital Signs:
Vital Signs
Temp Pulse Resp BP Pulse Ox
97.5 F 56 18 165/95 98
04/15/23 07:21 04/15/23 07:21 04/15/23 07:21 04/15/23 07:04/15/23 07:21
I&O
04/14/23 04/15/23 04/16/23
06:59 06:59 06:59
Intake Total 1979 480 / 480
Balance 1979 480 / 480
Review of Systems
-
History Source: Patient
All other systems: Reviewed and negative
[2023-04-15] MEDS: ZOFRAN 4 MG IV (10:48)
--- NOTE | 2023-04-15 10:52 | W.PN.GS2 ---
Addendum entered and electronically signed by Aman Esparza MD 04/15/23 13:26:
I saw and examined the patient.
The RESPIRATORY PRACTITIONER's note was reviewed and I agree with the note.
Comment:
Seen earlier with RESPIRATORY PRACTITIONER.
A bit more discomfort. A bit of nausea.
Vitals ok.
Mild LLQ tenderness.
Backed diet to clears.
xRay tomorrow.
Original Note:
Today's Communication / Plan
-
Clear liquids
XR in AM
Assessment / Plan
-
Assessment: 52 y/o male with probable recurrent partial SBO in setting of innumerable prior abdominal surgeries (SBR/colon resection/ostomy and reversal, hernia repairs with mesh)
04/11 CT imaging without bowel compromise or threat. symptoms started after eating out this time.
04/12 - BE: no evidence of anastomotic stricture, otherwise normal study
04/13 abdominal xray improving bowel gas pattern
04/14 advanced to fulls
Worsening pain today
Plan: back diet down to clears
miralax QD
XR in AM
pain management
given prior surgical hx pt likely with extensive adhesions. dietary counseling provided to patient - recommended that he generally may need to consume smaller portions and softer/easier to digest foods for the foreseeable future to hopefully
minimize residential recurrent pSBO symptoms/occurrences. supplement nutritional intake with protein/calorie shakes. surgery would only be considered for compromised bowel or immediate bowl threat.
Subjective Data
-
Date of Service: April 15, 2023
Patient seen and examined at bedside with Dr. Esparza. Patient reports feeling more abdominal pain today, predominantly to the left abdomen. Denies vomiting but has had some nausea.
Objective Data
-
Intake and Output
04/14/23 04/15/23 04/16/23
06:59 06:59 06:59
Intake Total 1979 480 / 480
Balance 1979 480 / 480
Intake:
Oral fluids 1979 480 / 480
Other:
Number of approximated MODERATE 3 1
amounts of urine
Number of approximated LARGE 7
amounts of urine
Vital Signs
Temp Pulse Resp BP Pulse Ox
97.5 F 56 18 165/95 98
04/15/23 07:21 04/15/23 07:21 04/15/23 07:21 04/15/23 07:21 04/15/23 07:21
Calcium 7.6 mg/dl (8.4-10.2) L 04/12/23 04:48
Total Bilirubin 0.7 mg/dl (0.2-1.3) 04/11/23 16:17
AST 27 U/L (17-59) 04/11/23 16:17
ALT 23 U/L (0-50) 04/11/23 16:17
Alkaline Phosphatase 74 U/L (38-126) 04/11/23 16:17
Total Protein 6.9 g/dl (6.3-8.2) 04/11/23 16:17
Albumin 4.3 g/dl (3.5-5.0) 04/11/23 16:17
Physical Exam
-
Gen: NAD
Abd: soft, mild/moderate tenderness, mild distention, non-peritoneal, prior incisions well healed
[2023-04-15 11:10] LABS: % Basophils 0.5 % (0-2); % Eosinophils 1.4 % (0-6); % Immature Granulocytes 0.6 % (0-0.5); % Lymphocytes 23.3 % (20.5-51.1); % Monocytes 8.3 % (1.7-9.3); % Neutrophils 65.9 % (42.2-75.2); Absolute Eosinophils 0.1 10^3/uL (0-0.7); Absolute Immature Granulocytes 0.1 10^3/uL (0-0.05); Absolute Lymphocytes 1.9 10^3/uL (1.2-3.4); Absolute Monocytes 0.7 10^3/uL (0.1-0.6); Absolute Neutrophils 5.3 10^3/uL (1.4-6.5); Hematocrit 42.5 % (39.0-52.0); Hemoglobin 14.6 g/dL (13.0-18.0); Mean Corp Hgb Conc. 34.4 g/dL (33.0-37.0); Mean Corpuscular Hgb 28.4 pg (27.0-31.0); Mean Corpuscular Volume 82.7 fL (80.0-94.0); Mean Platelet Volume 9.9 fL (7.4-10.4); Nucleated Red Blood Cells % 0 % (-); Platelet Count 185 10^3/uL (130-400); Red Blood Cell Count 5.14 10^6/uL (4.70-6.10); Red Cell Dist. Width 12.4 % (11.5-14.5)
[2023-04-15 11:38] LABS: ALT (SGPT) 17 U/L (0-50); AST (SGOT) 21 U/L (17-59); Albumin 3.5 g/dl (3.5-5.0); Alkaline Phosphatase 65 U/L (38-126); Blood Urea Nitrogen 17 mg/dl (9-20); Carbon Dioxide 30 mmol/L (22-30); Chloride 102 mmol/L (98-107); Estimated Creatinine Clearance 101 ml/min; Glucose 112 mg/dl (70-99); Potassium 4.4 mmol/L (3.5-5.1); Sodium 140 mmol/L (135-145); Total Bilirubin 0.7 mg/dl (0.2-1.3); Total Protein 6.3 g/dl (6.3-8.2); eGFR > 60.00
[2023-04-15] MEDS: OFIRMEV 100 IV (11:53)
[2023-04-15 15:41] VITALS: BP 152/98
--- NOTE | 2023-04-15 17:42 | PTCARENOTE ---
Pt with increasing L sided abdominal pain, declining scheduled Ofirmev or PRN Toradol. García Mallory PHLEBOTOMY COORDINATOR notified, no longer in house advised RN to contact hospitalist. Dr Khalil notified via tiger text, no new orders at this time. Care is ongoing.
[2023-04-15] MEDS: OFIRMEV IV (18:11)
[2023-04-15] MEDS: ROXICODONE 5 MG PO (18:27)
[2023-04-15] MEDS: SEROQUEL 50 MG PO (21:35)
[2023-04-15 23:35] VITALS: BP 161/89
[2023-04-16] MEDS: OFIRMEV IV ×2 (00:02→06:12)
[2023-04-16 07:40] VITALS: BP 141/95
[2023-04-16] MEDS: ZOLOFT 100 MG PO (08:24)
[2023-04-16] MEDS: MIRALAX PO (08:24)
[2023-04-16] MEDS: ZESTRIL 10 MG PO (08:24)
[2023-04-16] MEDS: TORADOL 30 MG IV ×2 (08:28→17:35)
[2023-04-16 09:10] LABS: Hematocrit 39.5 % (39.0-52.0); Hemoglobin 13.5 g/dL (13.0-18.0); Mean Corp Hgb Conc. 34.2 g/dL (33.0-37.0); Mean Corpuscular Hgb 28.2 pg (27.0-31.0); Mean Corpuscular Volume 82.5 fL (80.0-94.0); Mean Platelet Volume 10.1 fL (7.4-10.4); Platelet Count 172 10^3/uL (130-400); Red Blood Cell Count 4.79 10^6/uL (4.70-6.10); Red Cell Dist. Width 12.3 % (11.5-14.5); White Blood Cell Count 7.5 10^3/uL (4.8-10.8)
[2023-04-16 09:33] LABS: Blood Urea Nitrogen 19 mg/dl (9-20); Calcium 8.4 mg/dl (8.4-10.2); Carbon Dioxide 29 mmol/L (22-30); Chloride 104 mmol/L (98-107); Estimated Creatinine Clearance 101 ml/min; Glucose 95 mg/dl (70-99); Sodium 137 mmol/L (135-145); eGFR > 60.00
[2023-04-16 09:42] LABS: Potassium 3.9 mmol/L (3.5-5.1)
--- NOTE | 2023-04-16 10:01 | W.PN.GS2 ---
Addendum entered and electronically signed by Chema Galvez MD 04/16/23 17:57:
I saw and examined the patient.
The BOOK MENDER's note was reviewed and I agree with the note.
Comment:
Complaining of of LLQ abdominal pain, about the same as yesterday; some nausea, passing flatus, had small BM
AFVSS, abdomen soft, mildly distended, mildly to moderately tender in the LLQ, no R/G
WBC 7.5
AXR showing nonobstructive gas pattern
�Will back down to n.p.o.; if any vomiting, recommend NGT
� If abdominal pain does not improve by tomorrow or worsens, recommend repeat CT with p.o.
� Moderate pain control, continue Toradol and Tylenol as needed
Original Note:
Today's Communication / Plan
-
XR today
Make NPO
Assessment / Plan
-
Assessment: 52 y/o male with probable recurrent partial SBO in setting of innumerable prior abdominal surgeries (SBR/colon resection/ostomy and reversal, hernia repairs with mesh)
04/11 CT imaging without bowel compromise or threat. symptoms started after eating out this time.
04/12 - BE: no evidence of anastomotic stricture, otherwise normal study
04/13 abdominal xray improving bowel gas pattern
04/14 advanced to fulls
04/15 backed down to clears d/t increased pain/distention. Still with flatus
Worsening pain today although still with some flatus and small liquid stool, some nausea
Plan: NPO x sips/chips
miralax held
recheck XR today
pain management
given prior surgical hx pt likely with extensive adhesions. dietary counseling provided to patient - recommended that he generally may need to consume smaller portions and softer/easier to digest foods for the foreseeable future to hopefully
minimize senior care recurrent pSBO symptoms/occurrences. supplement nutritional intake with protein/calorie shakes. surgery would only be considered for compromised bowel or immediate bowl threat.
Subjective Data
-
Date of Service: April 16, 2023
Patient seen and examined at bedside. Reports mild nausea but not vomiting. Passing some flatus and a small liquid stool. Abdominal pain on the left side has worsened. Bloating present.
Objective Data
-
Intake and Output
04/15/23 04/16/23 04/17/23
06:59 06:59 06:59
Intake Total 480 / 480 1480 / 1480
Balance 480 / 480 1480 / 1480
Intake:
Oral fluids 480 / 480 1380 / 1380
IV piggybacks 100 / 100
Other:
Number of approximated MODERATE 1 3
amounts of urine
Vital Signs
Temp Pulse Resp BP Pulse Ox
98.0 F 60 18 151/89 95
04/16/23 07:40 04/16/23 08:24 04/16/23 07:40 04/16/23 08:24 04/16/23 07:40
Lab Results
04/16/23 08:41
04/16/23 08:41
Calcium 8.4 mg/dl (8.4-10.2) 04/16/23 08:41
Total Bilirubin 0.7 mg/dl (0.2-1.3) 04/15/23 10:55
AST 21 U/L (17-59) 04/15/23 10:55
ALT 17 U/L (0-50) 04/15/23 10:55
Alkaline Phosphatase 65 U/L (38-126) 04/15/23 10:55
Total Protein 6.3 g/dl (6.3-8.2) 04/15/23 10:55
Albumin 3.5 g/dl (3.5-5.0) 04/15/23 10:55
Physical Exam
-
Gen: NAD
Abd: soft, moderate tenderness to left abdomen, moderate distention, non-peritoneal, prior incisions well healed
--- NOTE | 2023-04-16 12:27 | W.PN.HOSP.TC ---
Today's Communication/Plan
-
N.p.o.
IV fluids
Antiemetics
Assessment / Plan
Assessment / Plan
Gen-AAOx3, NAD, obese
HEENT-NC, AT, anicteric, clear oral mm
Neck-supple
CV-reg, no M, +S1/S2
Lungs-clear B/L
Abd-distended, mildly tender, no guarding
Ext-no edema
Musculoskeletal-no cyanosis, clubbing
Skin-warm and dry
Neuro-grossly non-focal
Psych-calm, cooperative
Partial small bowel obstruction -no free air on abdominal x-ray. Obstruction appears to have resolved. Barium enema shows no obstructing stricture. Abdominal film shows nonobstructive bowel gas pattern.
Patient states he has had multiple episodes of bowel obstruction in the past, has had 15 abdominal surgeries.
Mild lipase elevation noted. Pancreas appears normal on CT scan. Doubt clinical pancreatitis.
Having increased pain today with nausea. Back to n.p.o. status today. Abdominal x-ray done this morning shows no evidence of obstruction.
Opioid use disorder -currently in inpatient rehab. Treated with naltrexone in rehab.
Hyperlipidemia
CAD -stable.
COPD without exacerbation -stable.
Anxiety/depression
BPH
Obesity due to excess calories
Full code
Dispo -can discharge back to inpatient drug and alcohol rehab when medically stable.
Anticipated Discharge: > 48 hours
Subjective/Interval History
-
Date of Service: April 16, 2023
Patient seen and examined. Complaining of increased abdominal pain. Mild nausea.
Objective Data
-
Labs:
Laboratory Results
04/16/23
08:41
WBC 7.5
Hgb 13.5
Hct 39.5
Plt Count 172
Sodium 137
Potassium 3.9
Chloride 104
Carbon Dioxide 29
BUN 19
Creatinine 0.9
Glucose 95
Calcium 8.4
Vital Signs:
Vital Signs
Temp Pulse Resp BP Pulse Ox
98.0 F 60 18 151/89 95
04/16/23 07:40 04/16/23 08:24 04/16/23 07:40 04/16/23 08:24 04/16/23 07:40
I&O
04/15/23 04/16/23 04/17/23
06:59 06:59 06:59
Intake Total 480 / 480 1480 / 1480
Balance 480 / 480 1480 / 1480
Review of Systems
-
History Source: Patient
All other systems: Reviewed and negative
[2023-04-16] MEDS: 0.45%NACL 1000 IV (12:42)
[2023-04-16 15:35] VITALS: BP 127/72
[2023-04-16] MEDS: LOVENOX 40 MG SC (17:38)
[2023-04-16] MEDS: SEROQUEL 50 MG PO (21:02)
[2023-04-16] MEDS: ROXICODONE 5 MG PO (21:22)
[2023-04-16 23:08] VITALS: BP 136/71
[2023-04-17] MEDS: 0.45%NACL 1000 IV (03:12)
[2023-04-17 05:14] LABS: Hematocrit 39.7 % (39.0-52.0); Hemoglobin 13.6 g/dL (13.0-18.0); Mean Corp Hgb Conc. 34.3 g/dL (33.0-37.0); Mean Corpuscular Hgb 28.3 pg (27.0-31.0); Mean Corpuscular Volume 82.7 fL (80.0-94.0); Mean Platelet Volume 10.3 fL (7.4-10.4); Platelet Count 173 10^3/uL (130-400); Red Cell Dist. Width 12.4 % (11.5-14.5); White Blood Cell Count 7.9 10^3/uL (4.8-10.8)
[2023-04-17 05:29] LABS: Blood Urea Nitrogen 21 mg/dl (9-20); Calcium 8.5 mg/dl (8.4-10.2); Carbon Dioxide 26 mmol/L (22-30); Chloride 102 mmol/L (98-107); Estimated Creatinine Clearance > 125 ml/min; Glucose 75 mg/dl (70-99); Sodium 138 mmol/L (135-145); eGFR > 60.00
[2023-04-17 08:00] VITALS: BP 134/79
--- NOTE | 2023-04-17 08:37 | W.PN.GS2 ---
Today's Communication / Plan
-
full liquid diet
Assessment / Plan
-
Assessment: 52 y/o male with probable recurrent partial SBO in setting of innumerable prior abdominal surgeries (SBR/colon resection/ostomy and reversal, hernia repairs with mesh)
given prior surgical hx pt likely with extensive adhesions. dietary counseling provided to patient - recommended that he generally may need to consume smaller portions and softer/easier to digest foods for the foreseeable future to hopefully
minimize alf recurrent pSBO symptoms/occurrences. supplement nutritional intake with protein/calorie shakes. surgery would only be considered for compromised bowel or immediate bowl threat.
04/11 CT imaging without bowel compromise or threat. symptoms started after eating out this time.
04/12 - BE: no evidence of anastomotic stricture, otherwise normal study
04/13 abdominal xray improving bowel gas pattern
04/14 advanced to fulls
04/15 backed down to clears d/t increased pain/distention. Still with flatus
04/16 Worsening pain today although f/u xray with improvement
Today pain is much improved, no further nausea. Appetite returned
Plan: Resume full liquids
miralax qd
follow bowel pattern/exams
Subjective Data
-
Date of Service: April 17, 2023
Patient seen and examined at bedside with Dr. Philip. Schreiber n/v. Pain improved today. Passing flatus and small stools. Appetite has returned
Objective Data
-
Intake and Output
04/16/23 04/17/23 04/18/23
06:59 06:59 06:59
Intake Total 1480 / 1480 1440 / 1440
Balance 1480 / 1480 1440 / 1440
Intake:
Oral fluids 1380 / 1380
IV fluids (Total) 1440 / 1440
IV piggybacks 100 / 100
Other:
Number of approximated SMALL 2
amounts of urine
Number of approximated MODERATE 3
amounts of urine
Vital Signs
Temp Pulse Resp BP Pulse Ox
97.8 F 61 18 136/71 93
04/16/23 23:08 04/16/23 23:08 04/16/23 23:08 04/16/23 23:08 04/16/23 23:08
Lab Results
04/17/23 04:09
04/17/23 04:09
Calcium 8.5 mg/dl (8.4-10.2) 04/17/23 04:09
Total Bilirubin 0.7 mg/dl (0.2-1.3) 04/15/23 10:55
AST 21 U/L (17-59) 04/15/23 10:55
ALT 17 U/L (0-50) 04/15/23 10:55
Alkaline Phosphatase 65 U/L (38-126) 04/15/23 10:55
Total Protein 6.3 g/dl (6.3-8.2) 04/15/23 10:55
Albumin 3.5 g/dl (3.5-5.0) 04/15/23 10:55
Physical Exam
-
Gen: NAD
Abd: soft, mild tenderness to left abdomen, mild distention, non-peritoneal, prior incisions well healed
[2023-04-17] MEDS: MIRALAX PO (08:54)
[2023-04-17] MEDS: ZESTRIL 10 MG PO (08:55)
[2023-04-17] MEDS: ZOLOFT 100 MG PO (08:55)
[2023-04-17] MEDS: TORADOL 30 MG IV ×2 (08:59→21:45)
--- NOTE | 2023-04-17 11:45 | W.PN.HOSP.TC ---
Today's Communication/Plan
-
Monitor vitals
See plan
Restart Symbicort, tamsulosin, aspirin
Monitor on full liquid diet
Assessment / Plan
Assessment / Plan
Gen-AAOx3, NAD, obese
HEENT-NC, AT, anicteric,
CV-reg, no M, +S1/S2
Lungs-clear B/L
Abd-distended, mildly tender, no guarding
Ext-no edema
Neuro-grossly non-focal
Psych-calm, cooperative
Partial small bowel obstruction -no free air on abdominal x-ray. Obstruction appears to have resolved. Barium enema shows no obstructing stricture. Abdominal film shows nonobstructive bowel gas pattern.
Patient states he has had multiple episodes of bowel obstruction in the past, has had 15 abdominal surgeries.
Mild lipase elevation noted. Pancreas appears normal on CT scan. Doubt clinical pancreatitis.
Now back on full liquid, monitor clinically
Surgery following
Opioid use disorder -currently in inpatient rehab. Treated with naltrexone in rehab.
Hyperlipidemia
CAD -stable.
COPD without exacerbation -stable.
Symbicort
Anxiety/depression
BPH
Obesity due to excess calories
Full code
Dispo -can discharge back to inpatient drug and alcohol rehab when medically stable.
Anticipated Discharge: 24 - 48 hours
Subjective/Interval History
-
Date of Service: April 17, 2023
has some discomfort
Objective Data
-
Labs:
Laboratory Results
04/17/23
04:09
WBC 7.9
Hgb 13.6
Hct 39.7
Plt Count 173
Sodium 138
Potassium 4.0
Chloride 102
Carbon Dioxide 26
BUN 21 H
Creatinine 0.7
Glucose 75
Calcium 8.5
Vital Signs:
Vital Signs
Temp Pulse Resp BP Pulse Ox
97.9 F 55 16 146/79 95
04/17/23 08:00 04/17/23 08:55 04/17/23 08:00 04/17/23 08:55 04/17/23 08:00
I&O
04/16/23 04/17/23 04/18/23
06:59 06:59 06:59
Intake Total 1480 / 1480 1440 / 1440
Balance 1480 / 1480 1440 / 1440
[2023-04-17] MEDS: SYMBICORT 80/4.5 MCG INHALER INH (12:47)
--- NOTE | 2023-04-17 15:37 | CM ---
Patient diet increased today to LRD.
patient resides in a residential sober home with roommates.
Plan: return to home no needs.
[2023-04-17 16:28] VITALS: BP 153/96
[2023-04-17] MEDS: LOVENOX 40 MG SC (17:13)
[2023-04-17] MEDS: SYMBICORT 80/4.5 MCG INHALER 2 PUFF INH (21:11)
[2023-04-17] MEDS: SEROQUEL 50 MG PO (21:39)
[2023-04-17] MEDS: FLOMAX 0.400000000000000022 MG PO (21:40)
[2023-04-17 23:00] VITALS: BP 145/88
[2023-04-18 06:51] LABS: % Basophils 0.5 % (0-2); % Eosinophils 2.6 % (0-6); % Immature Granulocytes 0.7 % (0-0.5); % Lymphocytes 26.7 % (20.5-51.1); % Monocytes 9.6 % (1.7-9.3); % Neutrophils 59.9 % (42.2-75.2); Absolute Eosinophils 0.2 10^3/uL (0-0.7); Absolute Immature Granulocytes 0.1 10^3/uL (0-0.05); Absolute Monocytes 0.7 10^3/uL (0.1-0.6); Absolute Neutrophils 4.4 10^3/uL (1.4-6.5); Hematocrit 40.4 % (39.0-52.0); Hemoglobin 13.9 g/dL (13.0-18.0); Mean Corp Hgb Conc. 34.4 g/dL (33.0-37.0); Mean Corpuscular Hgb 27.9 pg (27.0-31.0); Mean Corpuscular Volume 81.1 fL (80.0-94.0); Mean Platelet Volume 10.2 fL (7.4-10.4); Nucleated Red Blood Cells % 0 % (-); Platelet Count 190 10^3/uL (130-400); Red Blood Cell Count 4.98 10^6/uL (4.70-6.10); Red Cell Dist. Width 12.5 % (11.5-14.5); White Blood Cell Count 7.4 10^3/uL (4.8-10.8)
[2023-04-18 07:09] LABS: Blood Urea Nitrogen 19 mg/dl (9-20); Calcium 8.4 mg/dl (8.4-10.2); Carbon Dioxide 26 mmol/L (22-30); Chloride 106 mmol/L (98-107); Estimated Creatinine Clearance 101 ml/min; Glucose 92 mg/dl (70-99); Potassium 3.8 mmol/L (3.5-5.1); Sodium 136 mmol/L (135-145); eGFR > 60.00
[2023-04-18 07:53] VITALS: BP 143/85
--- NOTE | 2023-04-18 07:53 | W.PN.GS2 ---
Today's Communication / Plan
-
Cont LRD
Assessment / Plan
-
Assessment: 52 y/o male with probable recurrent partial SBO in setting of innumerable prior abdominal surgeries (SBR/colon resection/ostomy and reversal, hernia repairs with mesh)
given prior surgical hx pt likely with extensive adhesions. dietary counseling provided to patient - recommended that he generally may need to consume smaller portions and softer/easier to digest foods for the foreseeable future to hopefully
minimize medical terminologist recurrent pSBO symptoms/occurrences. supplement nutritional intake with protein/calorie shakes. surgery would only be considered for compromised bowel or immediate bowl threat.
04/11 CT imaging without bowel compromise or threat. symptoms started after eating out this time.
04/12 - BE: no evidence of anastomotic stricture, otherwise normal study
04/13 abdominal xray improving bowel gas pattern
04/14 advanced to fulls
04/15 backed down to clears d/t increased pain/distention. Still with flatus
04/16 Worsening pain today although f/u xray with improvement
Today pain is much improved, no further nausea. Appetite returned. Migue LRD yesterday without issues.
Plan: Cont LRD
miralax qd
follow bowel pattern/exams
Pls call with ?s
Subjective Data
-
Date of Service: April 18, 2023
No complaints. Migue LRD. Passing BM and flatus
Objective Data
-
Intake and Output
04/17/23 04/18/23 04/19/23
06:59 06:59 06:59
Intake Total 1440 / 1440 1560 / 1560 240 / 240
Balance 1440 / 1440 1560 / 1560 240 / 240
Intake:
Oral fluids 1080 / 1080 240 / 240
IV fluids (Total) 1440 / 1440 480 / 480
Other:
Number of approximated SMALL 2
amounts of urine
Number of approximated MODERATE 1
amounts of urine
Number of approximated LARGE 10
amounts of urine
Vital Signs
Temp Pulse Resp BP Pulse Ox
98 F 64 18 145/88 94
04/17/23 23:00 04/17/23 23:00 04/17/23 23:00 04/17/23 23:00 04/17/23 23:00
Lab Results
04/18/23 05:47
04/18/23 05:47
Calcium 8.4 mg/dl (8.4-10.2) 04/18/23 05:47
Total Bilirubin 0.7 mg/dl (0.2-1.3) 04/15/23 10:55
AST 21 U/L (17-59) 04/15/23 10:55
ALT 17 U/L (0-50) 04/15/23 10:55
Alkaline Phosphatase 65 U/L (38-126) 04/15/23 10:55
Total Protein 6.3 g/dl (6.3-8.2) 04/15/23 10:55
Albumin 3.5 g/dl (3.5-5.0) 04/15/23 10:55
Physical Exam
-
Gen:P NAD
Abd: soft, nt, nd
[2023-04-18] MEDS: ZOLOFT 100 MG PO (08:15)
[2023-04-18] MEDS: ZESTRIL 10 MG PO (08:15)
[2023-04-18] MEDS: ASPIR LOW (ENTERIC COATED) 81 MG PO (08:15)
[2023-04-18] MEDS: MIRALAX 17 GRAMS PO (08:15)
[2023-04-18] MEDS: FLOMAX 0.400000000000000022 MG PO (08:15)
[2023-04-18] MEDS: TOPROL XL 25 MG PO (08:34)
[2023-04-18] MEDS: SYMBICORT 80/4.5 MCG INHALER 2 PUFF INH (08:51)
--- NOTE | 2023-04-18 10:55 | W.PN.HOSP.TC ---
Today's Communication/Plan
-
Monitor vital signs and see plan
Now tolerating low res diet
Discharge today
Time of discharge 36 minutes
Assessment / Plan
Assessment / Plan
Gen-AAOx3, NAD, obese
HEENT-NC, AT, anicteric,
CV-reg, no M, +S1/S2
Lungs-clear B/L
Abd-distended, non tender, no guarding
Ext-no edema
Neuro-grossly non-focal
Psych-calm, cooperative
Partial small bowel obstruction -no free air on abdominal x-ray. Obstruction appears to have resolved. Barium enema shows no obstructing stricture. Abdominal film shows nonobstructive bowel gas pattern.
Patient states he has had multiple episodes of bowel obstruction in the past, has had 15 abdominal surgeries.
Mild lipase elevation noted. Pancreas appears normal on CT scan. Doubt clinical pancreatitis.
Now tolerating low res diet, monitor clinically
Surgery following
Opioid use disorder -currently in inpatient rehab. Treated with naltrexone in rehab.
Hyperlipidemia
CAD -stable.
COPD without exacerbation -stable.
Symbicort
Anxiety/depression
BPH
Obesity due to excess calories
Full code
Dispo -can discharge back to inpatient drug and alcohol rehab when medically stable.
Anticipated Discharge: Today
Subjective/Interval History
-
Date of Service: April 18, 2023
deneis pain
Objective Data
-
Labs:
Laboratory Results
04/18/23
05:47
WBC 7.4
Hgb 13.9
Hct 40.4
Plt Count 190
Sodium 136
Potassium 3.8
Chloride 106
Carbon Dioxide 26
BUN 19
Creatinine 0.9
Glucose 92
Calcium 8.4
Vital Signs:
Vital Signs
Temp Pulse Resp BP Pulse Ox
97.7 F 68 18 143/85 96
04/18/23 07:53 04/18/23 08:56 04/18/23 08:56 04/18/23 08:15 04/18/23 08:56
I&O
04/17/23 04/18/23 04/19/23
06:59 06:59 06:59
Intake Total 1440 / 1440 1560 / 1560 240 / 240
Balance 1440 / 1440 1560 / 1560 240 / 240
--- NOTE | 2023-04-18 10:58 | W.DCSUMMARY ---
Discharge Summary
Discharge Data
Date of Admission: 04/11/23
Date of Discharge: 04/18/23
-
Pending Results: No
Hospital Course
52-year-old male with past medical history of multiple abdominal surgeries, CAD, COPD, hyperlipidemia, opioid use disorder, anxiety, depression, BPH, obesity came to the hospital with abdominal pain known to have partial small bowel obstruction.
Barium enema was done which did not show any signs of obstructive stricture. Patient was seen by surgery throughout hospitalization. Initially patient was treated with bowel rest and fluids. When his symptoms started to improve he was then
started on diet. He was able to tolerate low residue diet prior to the discharge. Once he was able to tolerate diet and his symptoms were improving, he was then discharged with instructions to follow-up with all his physicians outpatient.
Discharge Plan
-
Patient Disposition: Other
Discharge Diagnosis/Procedures: Recurrent partial small bowel obstruction
Opiate use disorder
Diet: Low Residue
Activity: No restrictions
Driving Restrictions: As prior to admission
Bathing Restrictions: None
Referrals:
Antoni Vickers CRNP [Family Provider] - in less than 1 week
Prescriptions:
Continued
atorvastatin [Lipitor] 40 mg Tablet
40 mg PO HS
clonidine HCl 0.1 mg Tablet
0.1 mg PO BIDPRN PRN (Reason: ANIXETY)
polyethylene glycol 3350 [Miralax] 17 gram Powder In Packet
17 g PO HSPRN PRN (Reason: CONSTIPATION)
naltrexone 50 mg Tablet
50 mg PO HS
sertraline 100 mg Tablet
100 mg PO DAILY
hydroxyzine HCl 50 mg Tablet
50 mg PO DAILY
aspirin 81 mg Tablet,Delayed Release (Dr/Ec)
81 mg PO DAILY
tamsulosin [Flomax] 0.4 mg Capsule
0.4 mg PO BID
lisinopril 10 mg Tablet
10 mg PO DAILY
Fleet Enema 19-7 gram/118 mL Enema
118 ml CA HSPRN PRN (Reason: CONSTIPATION)
metoprolol succinate 25 mg Tablet Extended Release 24 Hr
25 mg PO DAILY
prazosin 2 mg Capsule
8 mg PO HS
methocarbamol 500 mg Tablet
500 mg PO TIDPRN PRN (Reason: spasms)
nitroglycerin [Nitrostat] 0.4 mg Tablet, Sublingual
0.4 mg SUBLINGUAL [id number] PRN (Reason: chest pains)
albuterol sulfate [ProAir HFA] 90 mcg/actuation Hfa Aerosol Inhaler
2 puff INHALATION R Q4HPRN PRN (Reason: sob)
budesonide-formoterol [Symbicort] 80-4.5 mcg/actuation Hfa Aerosol Inhaler
1 inh INHALATION R BID
hydroxyzine HCl 50 mg Tablet
100 mg PO HS
docusate sodium 100 mg Capsule
100 mg PO BID
quetiapine [Seroquel] 50 mg Tablet
50 mg PO HS
magnesium glycinate
665 mg PO HS
Discharge Orders:
Discharge Patient (As Directed); Ordered 04/18/23
Ordered By: Jackson Magallanes
Discharge Date and Time
Discharge Date/Time: 04/18/23 11:36
--- NOTE | 2023-04-18 11:03 | CM ---
Spoke with patient bedside.
Plan back to residential sober house when medically cleared.
Patient has transportation available.
Patient denies home care needs.
Plan: home no needs.
== END 2023-04-18 11:36 | disposition home or self-care (01) | DRG 390 ==
LOC: 2 SOUTH 22:24
PROVIDERS: Emergency Medicine; Hospitalist; Radiology Diagnostic Radiology; Registered Nurse; ADMITTING PHYSICIAN Internal Medicine; ATTENDING PHYSICIAN Internal Medicine; CONSULT PHYSICIAN Surgery; EMERGENCY PHYSICIAN Emergency Medicine; FAMILY PHYSICIAN Nurse Practitioner Acute Care
PROC: BD14YZZ Fluoroscopy of Colon using Other Contrast (ICD-10-PCS; 2023-04-12)
DX: K56.51 Intestinal adhesions [bands], with partial obstruction (principal); F17.200 Nicotine dependence, unspecified, uncomplicated; I10 Essential (primary) hypertension; F41.9 Anxiety disorder, unspecified; F32.A Depression, unspecified; E78.00 Pure hypercholesterolemia, unspecified; J44.89 Other specified chronic obstructive pulmonary disease; E66.09 Other obesity due to excess calories; Z79.82 Long term (current) use of aspirin; Z68.38 Body mass index [BMI] 38.0-38.9, adult; F11.10 Opioid abuse, uncomplicated
CPT/HCPCS: 71045; 74018; 74177; 74270; 80048; 80053; 83605; 83690; 85025; 85027; 87040; 87070; 87147; 94640; 96361; 96365; 96375; 96376; 99291; 99406; Q9967